=== PATIENT | male | born 1930 | race Caucasian/White ===

== ENCOUNTER 2018-11-02 04:27 | Emergency (ER) | payer MEDICARE, OTHER ==
[2018-11-02] MEDS: HYDROCODONE/APAP (5/325) TAB PO (04:38)
== END 2018-11-02 06:32 | disposition home or self-care (01) ==
LOC: E/R 04:27
DX: G89.18 Other acute postprocedural pain (principal); R51 Headache
CPT/HCPCS: 70450; 99284